=== PATIENT | male | born 1945 | race Caucasian/White ===

== ENCOUNTER → 2017-01-26 | Outpatient (CLI) | payer MEDICARE ==
[~2017-01-26] MED LIST: ASPIR 8181 MG PO; CARVEDILOL6.25 MG PO; CRESTOR40 MG PO; HYDROCODON-ACE1 EAC7 PO; NEURONTIN 300300 M1 PO; PERCOCET 5-3251 EACH PO; PLAVIX 75 MG TA75 M1 PO; TYLENOL325 MG PO
== END ==
LOC: M.ULTRA 12:35
DX: Z01.818 Encounter for other preprocedural examination (principal); I70.213 Atherosclerosis of native arteries of extremities with intermittent claudication, bilateral legs; I25.10 Atherosclerotic heart disease of native coronary artery without angina pectoris; Z95.1 Presence of aortocoronary bypass graft

== ENCOUNTER 2017-02-25 08:54 | Inpatient (IN) | payer MEDICARE ==
[~2017-02-25] VITALS: Ht 177.8 cm; Wt 68.0 kg
[~2017-02-25 08:54] MED LIST changes: -HYDROCODON-ACE1 EAC7 PO
[2017-02-25 10:32] LABS: ABSOLUTE EOSINOPHILS 0.1 thou/uL (0.0-0.7); ABSOLUTE MONOCYTES 0.6 thou/uL (0.0-1.2); ABSOLUTE NEUTROPHILS 4.9 thou/uL (1.6-8.1); BASOPHILS 0.6 %; EOSINOPHILS 1.8 %; HEMATOCRIT 45.9 % (42.0-52.0); HEMOGLOBIN 15.6 gm/dL (14.0-18.0); LYMPHOCYTES 15.7 %; MCH 35.8 pg (26.0-34.0); MCV 105.4 fL (80.0-100.0); MONOCYTES 8.3 %; MPV 7.3 fl. (7.2-11.1); NUCLEATED RBCS 0 /100WBC; PLATELET COUNT* 198 thou/uL (150-400); POLYS 73.6 %; RBC 4.35 mil/uL (4.50-6.00); WBC 6.7 thou/uL (4.0-11.0)
[2017-02-25 10:35] LABS: POTASSIUM 4.4 mmol/L (3.5-5.1)
[2017-02-25 11:05] VITALS: BP 139/75
[2017-02-25 13:46] LABS: URINE BILIRUBIN NEGATIVE (Negative); URINE BLOOD NEGATIVE (Negative); URINE CLARITY CLEAR; URINE COLOR YELLOW; URINE GLUCOSE-RANDOM NEGATIVE (Negative); URINE KETONES TRACE (Negative); URINE LEUKOCYTES NEGATIVE (Negative); URINE NITRITE NEGATIVE (Negative); URINE PROTEIN NEGATIVE (Negative); URINE SPECIFIC GRAVITY 1.015 (1.005-1.030); URINE UROBILINOGEN 0.2 E.U./dl (0.2-1.0)
[2017-02-25 17:13] LABS: HEMATOCRIT 43.5 % (42.0-52.0); HEMOGLOBIN 14.5 gm/dL (14.0-18.0)
[2017-02-25 17:16] LABS: CALCIUM 8.2 mg/dL (8.5-10.1); CREATININE 1.1 mg/dL (0.6-1.3); POTASSIUM 4.8 mmol/L (3.5-5.1)
[2017-02-25 20:00] VITALS: BP 111/58
[2017-02-25 22:00] VITALS: BP 113/65
[2017-02-26] VITALS (10 sets, daily range): BP systolic 97–121; BP diastolic 52–65
[2017-02-26 04:35] LABS: HEMATOCRIT 39.7 % (42.0-52.0); HEMOGLOBIN 13.2 gm/dL (14.0-18.0); MCH 35.5 pg (26.0-34.0); MCHC 33.3 g/dL (28.0-37.0); MCV 106.6 fL (80.0-100.0); MPV 7.5 fl. (7.2-11.1); RBC 3.72 mil/uL (4.50-6.00); RDW-CV 11.9 % (10.5-14.5); WBC 9.4 thou/uL (4.0-11.0)
[2017-02-26 04:49] LABS: CALCIUM 7.9 mg/dL (8.5-10.1); CREATININE 1.1 mg/dL (0.6-1.3); POTASSIUM 4.9 mmol/L (3.5-5.1)
--- NOTE | 2017-02-26 05:28 | NUR ---
PT IS ABLE TO COMMUNICATE HIS NEEDS TO STAFF EFFECTIVELY. CURRENT PAIN MEDICATION REGIMEN HAS BEEN ADEQUATE FOR CONTROLLING HIS PAIN UP TO THIS TIME. RIGHT LEG SURGICAL DRESSING C/D/I. COBURN PATENT, BUT WILL BE DISCONTINUED LATER THIS MORNING. CAPNOGRAPHY IN PLACE; DOES NOT ALWAYS READ CORRECTLY DUE TO INTERFEARANCE BY HIS MUSTACHE; CORRECT RR DOCUMENTED IN VITALS. PT TO SEE HIM TODAY.
[2017-02-26] MEDS ORDERED: HYDROCODON-ACE1 EAC7 PO (08:18)
--- NOTE | 2017-02-26 09:23 | NUR ---
2616 ASSUMED CARE OF PATIENT. SEE DOCUMENTED ASSESSMENT. PT CURRENTLY FREE OF PAIN. PLAN IS FOR PT TO WORK WITH PATIENT AND MOVE TO DISCHARGE STATUS
--- NOTE | 2017-02-26 09:35 | NUR ---
[address] ELLSWORTH. PT CAN MOVE OUT OF ICU. PT TO WORK WITH PATIENT. ALL PULSES PRESENT CHARTED. MEPILEX INTact TO INCISIONS
--- NOTE | 2017-02-26 10:04 | NUR ---
PT INFORMED OF MOVING TO ROOM 214, MEDICATED FOR PAIN. SBAR FAXED TO TELE
--- NOTE | 2017-02-26 10:13 | NUR ---
REPORT CALLED TO EMILY PABON
--- NOTE | 2017-02-27 12:07 | S ---
[address] [address] SURGICAL PATH RPT PROCEDURE Name: JOSE RAFAEL MAZARIEGOS Room: [address] IN ..#: [id number] Admission: 02/25/17 Date of : 45 Discharge: 02/26/17 Report #: [id number] Path Case #: [id number] PATHOLOGY REPORT COLLECTION DATE: 02/25/2017 RECEIVED DATE: 02/25/2017 SUBMITTING PHYS: Dr. Fortino Vasquez OTHER PHYS: Dr. Jose Rafael Michael M.D. SPECIMEN(S) RECEIVED: A.Plaque right lower extremity * * * * * * * * * * * * FINAL DIAGNOSIS: Plaque right lower extremity: - Fibrointimal atherosclerotic plaque with calcification. (OLGA:pit; 02/27/2017) PATHOLOGIST: Diego Pope M.D. REPORT ELECTRONICALLY SIGNED BY: Diego Pope M.D. DATE/TIME: 02/27/2017 12:06 * * * * * * * * * * * * GROSS PATHOLOGY: Received in formalin labeled "Jose Rafael Mazariegos plaque right lower extremity" and consists of a segment of atherosclerotic plaque measuring 2.0 x 1.1 x 0.4 cm. The specimen is serially sectioned totally submitted as A1 following decalcification. 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 [facility] [address] [place] [address] SURGICAL PATH RPT PROCEDURE Name: JOSE RAFAEL MAZARIEGOS Room: [address]#: [id number] Admission: 02/25/17 Date of : 45 Discharge: 02/26/17 Report #: [id number] Path Case #: [id number] [address] PHONE: [phone] DIRECTOR: Victor M Dunne M.D. * * * END OF REPORT * * *
--- NOTE | 2017-03-04 08:31 | OP ---
[address] [address] OPERATIVE REPORT Name: YAZAN MAZARIEGOS Room: [address]#: [id number] Admission: 02/25/17 Attend Phys: Tho Fisher Discharge: 02/26/17 Date of : 45 Report #: [id number] THIS REPORT FOR: //name// CC: [facility] physician/PCP Fortino Mata DATE OF SERVICE: 02/25/2017 PREOPERATIVE DIAGNOSIS: Peripheral vascular disease with ulcer and severe rest pain. POSTOPERATIVE DIAGNOSIS: Peripheral vascular disease with ulcer and severe rest pain. SURGEON: Fortino Vasquez DO TEMPLE MARKER: Gianni Michael MD SECOND TEMPLE MARKER: Quinten Walsh ANESTHESIA: General endotracheal anesthesia. ESTIMATED BLOOD LOSS: 100 mL. PROCEDURES: 1. Distal femoral to below-knee popliteal artery bypass with an 8 mm ringed PTFE. 2. Right superficial femoral endarterectomy. INDICATIONS FOR THE PROCEDURE AND CONSENT: The patient is a 71-year-old male who presented originally with severe right lower extremity pain. 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 He later presented with recurrent symptoms and pain, was identified to have a thrombosed popliteal artery stent. Additionally, he was then admitted at [facility] for suspected thrombosis. CT angiogram did confirm that and recommendation for bypass was made. Vein mapping was performed, which demonstrated no adequate vein available. The patient did have some difficulty getting scheduled for several sociologic reasons. He later developed an ulcer to the anterior meek on the right leg and was finally able to be scheduled for this. Additionally, he did eventually quit smoking. Risks and benefits of fem-popliteal bypass were made including infection, bleeding, need for additional procedures. The patient wished to proceed, was consented and scheduled. PROCEDURE IN DETAIL: After timeout was performed, [place] [address] OPERATIVE REPORT Name: YAZAN MAZARIEGOS Room: [address] [place] [facility].#: [id number] Admission: 02/25/17 Attend Phys: Tho Fisher Discharge: 02/26/17 Date of : 45 Report #: [id number] supine position with circumferential sterile prep and drape of the right lower extremity. A 15-blade scalpel was used to make a longitudinal incision overlying the medial thigh. Dissection was carried down using Bovie electrocautery and sharply, the femoral artery was identified as were several collaterals which were preserved. Proximal and distal control of vessel loops was obtained. A longitudinal incision was then made on the medial calf below the knee and carried down both sharply and bluntly with Bovie electrocautery and Metzenbaum scissors. Several crossing veins were clipped, ligated and divided to expose the popliteal artery above the trifurcation. It was noted to be soft in this area. The previously placed stent was identified at the proximal margin of healthy vessel. The patient was systemically heparinized with 6000 units of heparin. A tunnel was created between the 2 incisions and an 8 mm ringed PTFE was tunneled between. At this time, the nursing assistants teacher surgeon worked simultaneously to complete the proximal and distal anastomosis. Each artery was clamped proximally and distally and longitudinal arteriotomy was made with an 11-blade scalpel and Guerrero scissors. The SFA demonstrated heavy plaque within it that would make suturing difficult, so this area was then locally endarterectomized using a plaque elevator and forceps as well as Guerrero scissors. The inflow was noted to be quite pulsatile and the SFA was reclamped. ____ anastomosis was then created by beveling the ringed PTFE fashioned as a lane and then sutured in place in a circumferential fashion using 5-0 Prolene suture. Prior to complete closure, the arteries were both demonstrated to backbleed and forward bleed well and then were irrigated with hep saline. Anastomosis was then completed and blood flow was allowed to backbleed from the tibial vessels into the PTFE graft and the PTFE graft, which was clamped proximally in the SFA incision was then allowed to fill antegrade from the SFA. Once we were satisfied that the graft ____ blood, blood flow was allowed into the graft. Doppler was then used to identify triphasic signal below the bypass and with clamping of the bypass it was monophasic. Being satisfied of the repair, the heparin, which had been recently redosed was then reversed with 50 units of protamine, Arsita and surgical snow were applied to the anastomosis. Five minutes was waited with pressure and hemostasis was noted. Both wounds were then copiously irrigated with antibiotic saline and then closed in layers using 2-0 Vicryl, 3-0 Vicryl and 4-0 Monocryl suture. Dermabond dressings were applied and Mepilex sterile dressings were applied over that. The patient tolerated the procedure well. All lap, needle and instrument counts correct. <ELECTRONICALLY SIGNED> By: Fortino Vasquez DO 03/04/17 0831 1631 1803Jomariel Vasquez DO /nt
== END 2017-02-26 17:00 | disposition home or self-care (01) | DRG 253 ==
LOC: M.PRE 08:54 → M.ICU 09:58 → M.TBA 09:58 → M.PRE 15:12 → M.ICU 18:07 → M.2W 02-26 10:34
PROVIDERS: Surgery; ADMIT Internal Medicine
PROC: 04CK0ZZ Extirpation of Matter from Right Femoral Artery, Open Approach (ICD-10-PCS; principal; 2017-02-25)
PROC: 041K0ZL Bypass Right Femoral Artery to Popliteal Artery, Open Approach (ICD-10-PCS; principal; 2017-02-25)
DX: I70.211 Atherosclerosis of native arteries of extremities with intermittent claudication, right leg (principal); R71.0 Precipitous drop in hematocrit; I25.10 Atherosclerotic heart disease of native coronary artery without angina pectoris; F10.10 Alcohol abuse, uncomplicated; K80.80 Other cholelithiasis without obstruction; I71.4 Abdominal aortic aneurysm, without rupture; J44.9 Chronic obstructive pulmonary disease, unspecified; Z79.899 Other long term (current) drug therapy; Z79.82 Long term (current) use of aspirin; Z95.5 Presence of coronary angioplasty implant and graft; Z95.1 Presence of aortocoronary bypass graft; Z90.49 Acquired absence of other specified parts of digestive tract; Z72.0 Tobacco use